=== PATIENT | female | born 1940 | race Caucasian/White ===

== ENCOUNTER → 2017-12-02 16:24 | Outpatient (CLI) | payer MEDICARE, SELFPAY ==
--- NOTE | 2017-12-02 16:28 | DI.RAD.S_ITS ---
PROCEDURE: XR SHOULDER LT MIN 2V INDICATIONS: left shoulder pain TECHNIQUE: 3 views of the shoulder were acquired. COMPARISON: [facility], , CHEST 2 VIEW, 07/19/2017, 10:14. FINDINGS: Bones: No fractures or dislocations, but there is moderately severe degenerative change at the a.c. joint and the glenohumeral articulation. No suspicious bony lesions. Visualized ribs appear intact. 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 Dictated by: Dale Downs M.D. on 12/03/2017 at 8:31 Approved by: Dale Downs M.D. on 12/03/2017 at 8:33
== END ==
PROVIDERS: Family Provider Internal Medicine; PCP Internal Medicine; Visit Provider Internal Medicine
DX: M19.012 Primary osteoarthritis, left shoulder (principal); M25.512 Pain in left shoulder
CPT/HCPCS: 73030

== ENCOUNTER → 2018-01-28 14:15 | Outpatient (CLI) | payer MEDICARE, SELFPAY | PROVIDERS: Family Provider Internal Medicine; PCP Internal Medicine; Visit Provider Registered Nurse | DX: R39.9 Unspecified symptoms and signs involving the genitourinary system (principal) | CPT/HCPCS: 87077; 87086; 87186 ==

== ENCOUNTER → 2018-03-10 11:45 | Outpatient (CLI) | payer MEDICARE, SELFPAY ==
[2018-03-10 13:03] LABS: Appearance Urine UA SL CLOUDY; Bilirubin Urine UA NEGATIVE (NEGATIVE); Color Urine UA YELLOW; Glucose Urine UA NEGATIVE (Normal); Ketones Urine UA NEGATIVE (NEGATIVE); Leukocyte Esterase Urine UA 2+ (NEGATIVE); Nitrite Urine UA NEGATIVE (Negative); Occult Blood Urine UA TRACE-LYSED (Negative); Protein Urine UA NEGATIVE (Negative); Urobilinogen Urine UA 0.2 E.U./dL (0.2); pH Urine UA 6.5 (4.5-8.0)
[2018-03-10 13:15] LABS: Bacteria Urine Few (2-10); RBC Urine 0-1/HPF (0-5/HPF); Squamous Epithelial Cell Urine 0-1 /HPF; WBC Urine 30-100/HPF (0-5/HPF)
[2018-03-10 13:16] LABS: Culture Indicated Urine Specimen Cultured
== END ==
PROVIDERS: PCP Internal Medicine; Visit Provider Internal Medicine
DX: R39.89 Other symptoms and signs involving the genitourinary system (principal)
CPT/HCPCS: 81001; 87077; 87086; 87186

== ENCOUNTER → 2018-11-20 18:53 | Outpatient (ROUT) | payer MEDICARE, SELFPAY | PROVIDERS: Family Provider Internal Medicine; PCP Internal Medicine; Visit Provider Student in an Organized Health Care Education/Training Program | DX: N39.0 Urinary tract infection, site not specified (principal) | CPT/HCPCS: 87077; 87086; 87186 ==

== ENCOUNTER → 2019-07-08 12:43 | Outpatient (CLI) | payer MEDICARE, SELFPAY | PROVIDERS: Family Provider Internal Medicine; PCP Internal Medicine; Referring Provider Internal Medicine; Visit Provider Internal Medicine | DX: M81.0 Age-related osteoporosis without current pathological fracture (principal); Z78.0 Asymptomatic menopausal state; E07.9 Disorder of thyroid, unspecified; Z82.62 Family history of osteoporosis; Z87.891 Personal history of nicotine dependence | CPT/HCPCS: 77080; 77081 ==

== ENCOUNTER → 2021-01-02 10:20 | Outpatient (CLI) | payer MEDICARE, SELFPAY ==
--- NOTE | 2021-01-02 | DI.US.S_ITS ---
PROCEDURE: US ABDOMEN LIMITED INDICATIONS: LLQ LUMP TECHNIQUE: Real-time focused scanning was performed of the abdomen, with image documentation. COMPARISON: None. FINDINGS: Focused ultrasound examination of left lower quadrant abdominal wall shows 1.3 cm defect in left anterior abdominal wall containing fat only. There is herniated bowel loops through the defect during Valsalva which is resolved at rest. IMPRESSION: Left lower abdominal wall defect with herniation sac containing fat and bowel loops during Valsalva and is fully reducible. Dictated by: David Castellanos M.D. on 01/02/2021 at 11:55 Approved by: David Castellanos M.D. on 01/02/2021 at 11:56
== END ==
PROVIDERS: Family Provider Internal Medicine; PCP Internal Medicine; Referring Provider Internal Medicine; Visit Provider Internal Medicine
DX: R19.04 Left lower quadrant abdominal swelling, mass and lump (principal); K46.9 Unspecified abdominal hernia without obstruction or gangrene
CPT/HCPCS: 76705

== ENCOUNTER → 2022-07-13 15:54 | Outpatient (CLI) | payer MEDICARE, SELFPAY ==
--- NOTE | 2022-07-13 15:57 | DI.RAD.S_ITS ---
PROCEDURE: XR HIP W PEL IF DONE LT 2V INDICATIONS: Left groin pain/Hx hip replacement TECHNIQUE: AP pelvis and two views of the left hip acquired. COMPARISON: [facility], , [id number] W PEL IF PERFORMED, 07/26/2015, 6:23. FINDINGS: Bones: Patient is status post left hip arthroplasty, with hardware components in expected positions. The hip joint appears congruent. The visualized bony structures appear intact. Moderate heterotopic calcification and along the lateral aspect of the acetabular cup. Soft tissues: Overlying postoperative changes are noted. No suspicious soft tissue densities. IMPRESSION: Left total hip arthroplasty, without hardware complication. Dictated by: Spencer Lees M.D. on 07/13/2022 at 16:24 Approved by: Spencer Lees M.D. on 07/13/2022 at 16:25
== END ==
PROVIDERS: Family Provider Internal Medicine; PCP Internal Medicine; Referring Provider Internal Medicine; Visit Provider Internal Medicine
DX: R10.32 Left lower quadrant pain (principal); Z96.642 Presence of left artificial hip joint
CPT/HCPCS: 73502

== ENCOUNTER → 2022-10-15 12:02 | Outpatient (CLI) | payer MEDICARE, SELFPAY ==
--- NOTE | 2022-10-15 12:03 | DI.RAD.S_ITS ---
PROCEDURE: XR LUMBAR SPINE MIN 4V INDICATIONS: BACK AND HIP PAIN TECHNIQUE: 5 views of the lumbar spine were acquired, including bilateral oblique views. COMPARISON: None. FINDINGS: Bones: 5 nonrib-bearing vertebrae are present. There is mild leftward scoliotic curvature. No vertebral body compression fractures. No suspicious bony lesions. Left hip arthroplasty is present. Mild to moderate right hip arthritic change. Multilevel degenerative disc and foraminal narrowing are present most severe at L2-3, L3-4, L4-5. Soft tissues: Overlying bowel gas pattern is normal. No suspicious soft tissue calcifications. Oblique images: No pars defects. IMPRESSION: Multilevel degenerative changes as above. Dictated by: Pepper Blood M.D. on 10/15/2022 at 14:26 Approved by: Pepper Blood M.D. on 10/15/2022 at 14:27
== END ==
PROVIDERS: Family Provider Internal Medicine; PCP Internal Medicine; Referring Provider Physical Medicine & Rehabilitation; Visit Provider Physical Medicine & Rehabilitation
DX: M51.36 Other intervertebral disc degeneration, lumbar region (principal); M48.061 Spinal stenosis, lumbar region without neurogenic claudication; M25.559 Pain in unspecified hip
CPT/HCPCS: 72110

== ENCOUNTER → 2022-11-01 13:06 | Outpatient (CLI) | payer MEDICARE, SELFPAY ==
--- NOTE | 2022-11-01 13:07 | DI.MRI.S_ITS ---
PROCEDURE: MR HIP LT WO CON INDICATIONS: Left hip flexor weaness and pain TECHNIQUE: Noncontrast coronal T1 spin echo and STIR through the bony pelvis. Coronal and axial STIR, sagittal T1 spin echo, and oblique axial STIR through the hip. COMPARISON: [facility], CR, XR HIP W PEL IF DONE LT 2V, 07/13/2022, 17:09. FINDINGS: Image quality: Images are mildly degraded by expected metallic artifact related to the hip prostheses despite utilization of metal artifact reduction sequences. Diagnostic information is obtained. Bones and joints: Postsurgical changes are seen from left hip arthroplasty that obscures adjacent structures. No large joint effusion or periarticular mass. No adjacent osseous edema. A chronic ununited greater trochanter fracture is noted the remains continuous with a portion of the gluteus medius tendon. Bone marrow of the pelvic ring and proximal femurs show normal signal throughout. No intraosseous lesions or fractures. No avascular necrosis of the right femoral head. Prominent degenerative disc disease and facet hypertrophy are seen in the included spine. Degenerative changes are seen at the pubic symphysis and sacroiliac joints. Degenerative changes and mild subchondral edema are noted in the contralateral right hip. Tendons and ligaments: Fluid signal is seen within the distal gluteus medius and minimus tendons, consistent with partial intrasubstance tearing. The bulk of the tendon fibers remain intact. The proximal iliotibial band appears intact. The iliopsoas tendon appears intact, without adjacent bursal fluid collections. Mild left and moderate right proximal hamstring tendinosis. The direct and indirect heads of the rectus femoris muscle origin appear intact. Soft tissues: Visualized muscles demonstrate normal bulk and internal signal. Quadratus femoris muscle demonstrates no internal edema to suggest ischiofemoral impingement. The proximal sciatic neurovascular bundle appears intact. Extensive colonic diverticulosis is noted. IMPRESSION: 1. Postsurgical changes from left total hip arthroplasty with associated metal artifact that obscures adjacent structures. No acute hardware complication is seen. 2. 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 The mildly displaced fracture fragment is continuous with a portion of the distal gluteus medius tendon. 3. Partial tearing of the left distal gluteus medius and minimus tendons just proximal to their insertions onto the greater trochanter. 4. Bilateral proximal hamstring tendinosis. 5. Multilevel degenerative changes and the low convex curvature within the included lumbar spine. 6. Degenerative changes are partially imaged in the right hip with subchondral cystic changes and subchondral edema. 7. Colonic diverticulosis. Approved by: Henry Miguel M.D. on 11/02/2022 at 9:32
== END ==
PROVIDERS: Family Provider Internal Medicine; PCP Internal Medicine; Referring Provider Physical Medicine & Rehabilitation; Visit Provider Physical Medicine & Rehabilitation
DX: M76.899 Other specified enthesopathies of unspecified lower limb, excluding foot (principal); M96.89 Other intraoperative and postprocedural complications and disorders of the musculoskeletal system; M61.40 Other calcification of muscle, unspecified site; S72.112 Displaced fracture of greater trochanter of left femur; S76.012A Strain of muscle, fascia and tendon of left hip, initial encounter; K57.90 Diverticulosis of intestine, part unspecified, without perforation or abscess without bleeding; M47.816 Spondylosis without myelopathy or radiculopathy, lumbar region; Z96.642 Presence of left artificial hip joint
CPT/HCPCS: 73721

== ENCOUNTER → 2022-11-28 10:41 | Outpatient (CLI) | payer MEDICARE, SELFPAY ==
--- NOTE | 2022-11-28 10:42 | DI.MRI.S_ITS ---
PROCEDURE: MR LUMBAR SPINE WO CON INDICATIONS: left hip flexor weakness TECHNIQUE: Noncontrast sagittal T1 spin echo and T2 fast echo, sagittal STIR, and T2 fast spin echo through the lumbar spine. In cases with scoliosis, additional coronal T2 fast spin echo may be performed. COMPARISON: None. FINDINGS: Image quality: Excellent. Alignment and Curvature: Mild levocurvature of the lumbar spine. Grade 1 retrolisthesis of T12 on L1, L1-L2 and L2 on L3. Grade 1 anterolisthesis of L4 on L5 and L5 on S1. Bone Marrow: Multilevel degenerative endplate changes, worse L4-L5.. No acute vertebral body compression fractures. Spinal Cord: Conus medullaris terminates at the L1 level. Visualized cord demonstrates normal signal and size. Paraspinous Soft Tissues: No paravertebral masses. Bilateral renal cysts. Hepatic cysts. T12-L1: Disc desiccation height loss. Small posterior disc bulge. Facet arthropathy and thickened ligamentum flavum. No central canal stenosis. No neural foraminal stenosis. L1-L2: Disc desiccation, height loss and a small posterior disc bulge. Facet arthropathy and thickening of the ligamentum flavum. No central canal stenosis. Moderate right and mild left neural foraminal stenosis. L2-L3: Disc desiccation, height loss and a posterior disc bulge. Facet arthropathy and thickening ligamentum flavum. Narrowing of the lateral recesses. No significant central canal stenosis. Moderate right and mild left neural foraminal stenosis. L3-L4: Disc desiccation, height loss and diffuse posterior disc bulge. Facet arthropathy, thickening of ligamentum flavum and epidural lipomatosis. This results in severe spinal canal stenosis. There is moderate to severe right and moderate left neural foraminal stenosis. L4-L5: Disc desiccation, height loss and a posterior disc bulge. Facet arthropathy and thickening of ligamentum flavum. Epidural lipomatosis. This results in moderate central canal stenosis. Narrowing of the lateral recesses with abutment of the descending L5 nerve roots. Moderate right and mild left neural foraminal stenosis. L5-S1: Disc desiccation and small posterior disc bulge. Facet arthropathy. No central canal stenosis. No neural foraminal stenosis. IMPRESSION: 1. Multilevel degenerative changes of the lumbar spine. This is worse L3-L4 with severe spinal canal stenosis. There is moderate central canal stenosis at L4-5 with narrowing of the lateral recesses and abutment of the descending L5 nerve roots. 2. Multilevel neural foraminal narrowing. At moderate right neural foramina L1-L2 , L2-L3 and L4-L5. Moderate to severe right neural foraminal narrowing at L3-L4. Additional levels of mild neural foraminal stenosis as described above. Dictated by: Sherwin Monge M.D. on 11/28/2022 at 12:44 Approved by: Sherwin Monge M.D. on 11/28/2022 at 12:51
== END ==
PROVIDERS: Family Provider Internal Medicine; PCP Internal Medicine; Referring Provider Physical Medicine & Rehabilitation; Visit Provider Physical Medicine & Rehabilitation
DX: M48.061 Spinal stenosis, lumbar region without neurogenic claudication (principal); M47.26 Other spondylosis with radiculopathy, lumbar region; Z96.642 Presence of left artificial hip joint; M47.27 Other spondylosis with radiculopathy, lumbosacral region
CPT/HCPCS: 72148

== ENCOUNTER 2023-02-27 12:38 | Day surgery (SDC) | payer MEDICARE, SELFPAY ==
[2023-02-21 15:00] VITALS: BMI 25.9
[2023-02-27] VITALS (8 sets, daily range): BP systolic 133–157; BP diastolic 57–80; PULSE 56–89; RESP 12–18; TEMP 36.5–37.2; O2SAT 95–98; BMI 25.6
[2023-02-27] MEDS: LACTATED RINGERS 1,000 ML 100 ML IV ×2 (13:22→15:30)
--- NOTE | 2023-02-27 14:15 | PM.PREOP ---
Pre-operative Note Interval Note History & Physical reviewed/Exam performed by Physician: Yes Changes to H&P: No
--- NOTE | 2023-02-27 14:19 | SUR.OPER ---
Supine on padded OR bed, head on pillow, safety belt at thigh, bilateral arms padded and tucked at side<90 degrees abduction. Legs uncrossed. Tape over blanket to secure lower legs.
[2023-02-27] MEDS: CEFAZOLIN 2 GM/100 ML PREMIX 100 ML IV (14:39)
[2023-02-27] MEDS: BUPIVACAINE 0.25% (PF) VIAL 30 ML INJ (14:56)
--- NOTE | 2023-02-27 15:51 | P.OP_ITS ---
Operative Date/Time/Diagnoses Date of procedure: 02/27/23 Time of procedure: 15:52 Pre-op diagnosis: Left inguinal hernia Post-op diagnosis: same Procedure & Clinicians Procedure: Laparoscopic repair of left inguinal hernia Same procedure as scheduled: Yes Indications: 82-year-old woman with a symptomatic left inguinal hernia here for a lapa roscopic repair Surgeon: Sunny Almonte Anesthesia Type: General Operative Notes Findings: Left femoral hernia. Left direct hernia Specimen(s): none sent Estimated Blood Loss (mL): 20 Procedure in detail: The patient was brought to the operating room and placed supine on the table. Bilateral sequential compression devices were applied. General anesthesia was induced and they were intubated with an endotracheal tube. A vasquez cath was placed in sterile fashion. They received Ancef prior to skin incision. They were prepped and draped in sterile fashion. A time out was performed to ensure the correct patient, procedure and necessary equipment within the operating room. The skin was infiltrated with 0.25% bupivicaine. A 1 cm supra umbilical midline incision was made. The fascia was sharply incised and the abdomen entered traumatically. A 10mm balloon port was placed and pneumoperitoneum was established at 15mm Hg. Inspection of the abdomen demonstrated no evidence of injury upon entry. Two 5 mm ports were then placed under direct visualization in the right and left lower quadrant lateral to the rectus muscle. No evidence of a right inguinal hernia. There was a left inguinal hernia. The peritoneum 4 cm superior to the deep inguinal ring between the medial umbilical ligament and the anterior superior iliac spine was incised. The medial preperitoneal dissection was carried out into the space of Retzius bluntly, the bladder was swept inferiorly, the pubis and Bernardo's ligament were identified. Next attention was turned towards the lateral aspect of the peritoneal flap. There was a fat containing femoral hernia which was reduced. There was portion of small bowel within a direct defect which was also reduced. The attachments to the direct hernia sac were divided. A large Bard 3D Max mesh was then placed into the abdomen and positioned such that the myopectineal orifice was completely covered with good overlap on all sides. The peritoneal flap was then repositioned back to its original position and a running V lock suture was used to close the peritoneum such that no bowel could herniate into the preperitoneal space. The area was examined for hemostasis. The 5mm trocars were removed under direct visualization and pneumoperitoneum was deflated through the umbilical trocar, The fascia at the umbilicus was closed with 0-Vicryl in figure of 8 fashion, skin closed with 4-0 Monocyl followed by Dermabond. The sponge and instrument count at the end of the case was correct. The patient emerged from anesthsia was extubated and transferred to recovery in stable condition. Complications: none Post-operative Condition: stable Disposition: same day surgery
[2023-02-27] MEDS: fentaNYL 100 MCG/2 ML INJ IV (15:53)
[2023-02-27] MEDS: OXYCODONE IR 5 MG TABLET PO ×2 (15:54→16:25)
== END 2023-02-27 16:51 | disposition home or self-care (01) ==
PROVIDERS: Family Provider Internal Medicine; PCP Internal Medicine; Referring Provider Surgery; Visit Provider Surgery
PROC: 0YQ64ZZ Repair Left Inguinal Region, Percutaneous Endoscopic Approach (ICD-10-PCS; CPT 49650; principal; 2023-02-27 15:45)
DX: K40.90 Unilateral inguinal hernia, without obstruction or gangrene, not specified as recurrent (principal); I10 Essential (primary) hypertension
CPT/HCPCS: 49650; J0690; J2704; J3010

== ENCOUNTER → 2023-08-01 10:08 | Outpatient (CLI) | payer MEDICARE, SELFPAY | PROVIDERS: Family Provider Family Medicine; PCP Family Medicine; Referring Provider Physical Medicine & Rehabilitation; Visit Provider Physical Medicine & Rehabilitation | DX: M48.061 Spinal stenosis, lumbar region without neurogenic claudication (principal); M54.16 Radiculopathy, lumbar region; M76.899 Other specified enthesopathies of unspecified lower limb, excluding foot; M61.40 Other calcification of muscle, unspecified site; M96.89 Other intraoperative and postprocedural complications and disorders of the musculoskeletal system | CPT/HCPCS: 95886; 95910 ==

== ENCOUNTER → 2023-09-06 09:05 | Outpatient (CLI) | payer MEDICARE, SELFPAY ==
--- NOTE | 2023-09-06 09:06 | DI.RAD.S_ITS ---
PROCEDURE: XR KNEE LT 3V INDICATIONS: left knee djd TECHNIQUE: 3 views of the knee were acquired. COMPARISON: None. FINDINGS: Bones: No fractures or dislocations. No suspicious bony lesions. [id number] tricompartmental knee joint degeneration. There is benign appearing periosteal reaction in tibia. Osteopenia. Soft tissues: Small joint effusion. No suspicious soft tissue calcifications. IMPRESSION: 1. Btsi-pr-xnsaxrhb degenerative joint disease. If clinical symptoms persist or there is clinical suspicion for internal derangement, consider MRI further evaluation. 2. Benign appearing periosteal reaction in proximal tibia. 3. Osteopenia. Dictated by: Elodia Ratliff M.D. on 09/06/2023 at 10:22 Approved by: Elodia Ratliff M.D. on 09/06/2023 at 10:45
== END ==
PROVIDERS: Family Provider Family Medicine; PCP Family Medicine; Referring Provider Physical Medicine & Rehabilitation; Visit Provider Physical Medicine & Rehabilitation
DX: M17.12 Unilateral primary osteoarthritis, left knee (principal); M85.862 Other specified disorders of bone density and structure, left lower leg
CPT/HCPCS: 73562

== ENCOUNTER → 2024-01-14 07:52 | Outpatient (CLI) | payer MEDICARE, SELFPAY ==
[2024-01-14 10:25] LABS: Add Manual Diff / Slide Review NO; Basophils Absolute Auto 100 /uL (0-100); Basophils Percent Auto 1.3 % (0-2); Eosinophils Absolute Auto 100 /uL (0-450); Hematocrit 38.9 % (36-46); Hemoglobin 13.3 g/dL (12.0-16.0); Lymphocytes Absolute Auto 1200 /uL (1100-4500); Lymphocytes Percent Auto 24.4 % (25-40); Mean Corpuscular HGB Conc 34.2 % (30-36); Mean Corpuscular Hemoglobin 33.2 PG (26-34); Mean Corpuscular Volume 97.2 fL (80-100); Monocytes Absolute Auto 600 /uL (0-900); Monocytes Percent Auto 12.3 % (3-14); Neutrophils Absolute Auto 2800 /uL (1500-7000); Platelet Count 241 X10^3/uL (150-400); Red Blood Cell Count 4.01 X10^6/uL (4.0-5.2); Red Cell Distribution Width 14.1 % (11.6-14.8); White Blood Cell Count 4.8 X10^3/uL (4.5-11.0)
[2024-01-14 10:58] LABS: Alanine Aminotransferase 20 IU/L (<35); Albumin 3.8 g/dL (3.5-5.0); Albumin Globulin Ratio 1.1 (1.0-2.8); Alkaline Phosphatase 79 U/L (38-126); Aspartate Aminotransferase 30 IU/L (14-36); Bilirubin Total 0.6 mg/dL (0.2-1.3); Chloride 104 mmol/L (98-107); Cholesterol 198 mg/dL (140-199); Globulin 3.5 g/dL (1.7-4.1); Glucose 89 mg/dL (80-110); HDL Cholesterol 95 mg/dL (40-60); HEMOLYSIS < 15 (0-50); Total Protein 7.3 g/dL (6.3-8.2)
[2024-01-14 11:19] LABS: Thyroid Stimulating Hormone 1.83 uIU/mL (0.47-4.68)
[2024-01-14 11:44] LABS: BUN Creatinine Ratio 32.1 (6-22); Blood Urea Nitrogen 18 mg/dL (7-17); Carbon Dioxide 25 mmol/L (22-32); Estimated Glomerular Filt Rate > 60 mL/min (>60); Sodium 137 mmol/L (137-145)
[2024-01-14 11:58] LABS: LDL Cholesterol Calculated 83 mg/dL (<100); Triglycerides 98 mg/dL (35-150)
== END ==
PROVIDERS: Family Provider Family Medicine; PCP Family Medicine; Referring Provider Family Medicine; Visit Provider Family Medicine
DX: I10 Essential (primary) hypertension (principal); M81.0 Age-related osteoporosis without current pathological fracture; E78.5 Hyperlipidemia, unspecified; Z86.2 Personal history of diseases of the blood and blood-forming organs and certain disorders involving the immune mechanism; R53.83 Other fatigue; E03.9 Hypothyroidism, unspecified
CPT/HCPCS: 36415; 80053; 80061; 84443; 85025

== ENCOUNTER 2024-07-12 09:33 | Emergency (ER) | payer MEDICARE, SELFPAY ==
[2024-07-12] VITALS (17 sets, daily range): BP systolic 101–135; BP diastolic 59–105; PULSE 76–132; RESP 16–21; TEMP 36.6; O2SAT 94–97; BMI 27.4
--- NOTE | 2024-07-12 09:38 | EKG_ITS ---
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
--- NOTE | 2024-07-12 09:45 | DI.RAD.S_ITS ---
PROCEDURE: XR CHEST 1V INDICATIONS: chest pain TECHNIQUE: One view of the chest was acquired. COMPARISON: None. FINDINGS: Surgical changes and devices: None. Lungs and pleura: Lungs are clear. No pleural effusions or pneumothorax. Calcified pleural plaques are seen throughout the lungs. Mediastinum: Mediastinal contours appear normal. Heart size is normal. Bones and chest wall: No suspicious bony lesions. Overlying soft tissues appear unremarkable. IMPRESSION: No acute cardiopulmonary abnormality is seen. Dictated by: Agata Zuluaga M.D. on 07/12/2024 at 9:14 Approved by: Agata Zuluaga M.D. on 07/12/2024 at 9:16
[2024-07-12 10:16] LABS: Prothrombin Time 10.8 SECONDS (9.4-12.5)
[2024-07-12 10:19] LABS: PTT Partial Thromboplastin Tim 34 SECONDS (25.1-36.5)
[2024-07-12 10:28] LABS: Alanine Aminotransferase 27 IU/L (<35); Albumin 4.5 g/dL (3.5-5.0); Albumin Globulin Ratio 1.1 (1.0-2.8); Alkaline Phosphatase 76 U/L (38-126); Aspartate Aminotransferase 37 IU/L (14-36); BUN Creatinine Ratio 18.8 (6-22); Bilirubin Total 0.7 mg/dL (0.2-1.3); Blood Urea Nitrogen 12 mg/dL (7-17); Calcium 9.4 mg/dL (8.4-10.2); Carbon Dioxide 26 mmol/L (22-32); Chloride 100 mmol/L (98-107); Creatine Kinase 31 U/L (30-135); Estimated Glomerular Filt Rate > 60 mL/min (>60); Globulin 4.1 g/dL (1.7-4.1); Glucose 120 mg/dL (80-110); HEMOLYSIS < 15 (0-50); Lipase 64 U/L (23-300); Magnesium 2.1 mg/dL (1.6-2.3); Potassium 3.8 mmol/L (3.4-5.1); Sodium 136 mmol/L (137-145); Total Protein 8.6 g/dL (6.3-8.2)
[2024-07-12 10:32] LABS: Add Manual Diff / Slide Review NO; Basophils Absolute Auto 100 /uL (0-100); Basophils Percent Auto 0.8 % (0-2); Eosinophils Absolute Auto 100 /uL (0-450); Eosinophils Percent Auto 1.8 % (2-4); Hematocrit 42.5 % (36-46); Hemoglobin 14.3 g/dL (12.0-16.0); Lymphocytes Absolute Auto 1600 /uL (1100-4500); Lymphocytes Percent Auto 22.6 % (25-40); Mean Corpuscular HGB Conc 33.6 % (30-36); Mean Corpuscular Hemoglobin 31.9 PG (26-34); Mean Corpuscular Volume 94.9 fL (80-100); Monocytes Absolute Auto 900 /uL (0-900); Monocytes Percent Auto 12.2 % (3-14); Neutrophils Absolute Auto 4500 /uL (1500-7000); Neutrophils Percent Auto 62.6 % (50-75); Platelet Count 262 X10^3/uL (150-400); Red Blood Cell Count 4.48 X10^6/uL (4.0-5.2); Red Cell Distribution Width 13.7 % (11.6-14.8); White Blood Cell Count 7.1 X10^3/uL (4.5-11.0)
[2024-07-12] MEDS: dilTIAZem 25 MG/5 ML SDV 10 MG IV (10:36)
[2024-07-12] MEDS: ASPIRIN 81 MG CHEW TAB 324 MG PO (10:36)
[2024-07-12 10:39] LABS: NT-proBNP (BNP-Adult 18+) 1280 pg/mL (<450); Troponin I < 0.012 ng/mL (0.01-0.034)
--- NOTE | 2024-07-12 13:19 | ED.ARRPALP ---
HPI - Arrhythmia/Palpitations General Chief Complaint: Arrhythmia/Palpitations Stated Complaint: fast heart beat Time Seen by Provider: 07/12/24 10:59 Source: patient Mode of arrival: Family Vehicle History of Present Illness HPI narrative: Patient is a 83-year-old female history of hyperlipidemia hypothyroid hypertension presenting today with heart palpitations. She reports that has been going on for an unknown amount of time maybe a week. She sometimes feels dizzy and lightheaded. Not necessarily short of breath no real chest pain. She was found to be AFib with RVR she has no history of atrial fibrillation. Not on anticoagulation. Related Data Home Medications Medication Instructions Recorded Confirmed calcium carbonate-vitamin D2 2 tab PO DAILY 07/09/24 07/09/24 [Calcium with Vitamin D] magnesium oxide 500 mg capsule 500 mg PO DAILY PRN 07/09/24 07/09/24 pravastatin 20 mg tablet 20 mg PO BEDTIME 07/09/24 07/09/24 Previous Rx's Medication Instructions Recorded acetaminophen 325 mg capsule 650 mg (2 x 325 mg) PO QID PRN 02/27/23 (Tylenol) pain #60 caps oxybutynin chloride 5 mg tablet 5 mg PO BEDTIME PRN bladder spasms 01/13/24 #30 tabs levothyroxine 75 mcg tablet 75 mcg PO QAM #90 tabs 01/28/24 (Synthroid) nifedipine 90 mg tablet,extended 90 mg PO DAILY #90 tabs 06/10/24 release 24 hr apixaban 5 mg tablet (Eliquis) 5 mg PO BID #30 tabs 07/12/24 apixaban 5 mg tablet (Eliquis) 5 mg PO BID #60 tabs 07/12/24 metoprolol succinate 25 mg 12.5 mg (1/2 x 25 mg) PO BID #20 07/12/24 tablet,extended release 24 hr tabs metoprolol succinate 25 mg 12.5 mg (1/2 x 25 mg) PO BID #30 07/12/24 tablet,extended release 24 hr tabs Allergies Allergy/AdvReac Type Severity Reaction Status Date / Time JORGE Inhibitors Allergy Mild COUGH Verified 07/12/24 10:27 [JORGE INHIBITORS] Patient History Medical History Postoperative visit Trapezius muscle spasm 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) Palpitations Osteoarthritis Osteoporosis Measles Left knee DJD Spinal stenosis of lumbar region with radiculopathy Hip flexor tendonitis Muscular heterotopic calcification, postoperative Osteopenia Colon polyps Anxiety (~2012) Mumps (~194) Chicken pox (~194) History of urinary incontinence (~2009) Hypothyroidism Hypertension (~2000) Hyperlipidemia Surgical History History of hernia repair (~02/27/23) History of total left hip arthroplasty Anesthesia Trigger thumb (~2013) History of hip replacement (~2015) History of cataract removal with insertion of prosthetic lens (~05/2016) Status post hernia repair (~02/2016) Status post bunionectomy (~2011) Status post bunionectomy (~2010) Family History Brother Age: 85 Atrial fibrillation Hypertension Heart disease Father Congestive heart failure Hypertension Mother Stroke Hypertension Family/Other No problems noted. Family/Other No problems noted. Social History marital status: unmarried,single household members: none lives independently: Yes occupational status: previously employed Smoking Status: Former smoker Smoking Status: Former smoker tobacco type: cigarettes alcohol intake frequency: a few times a month Exam Initial Vital Signs Initial Vital Signs: Vital Signs Temperature 97.8 F 07/12/24 09:55 Pulse Rate 132 H 07/12/24 09:55 Respiratory Rate 19 07/12/24 09:55 Blood Pressure 120/75 07/12/24 09:55 Pulse Oximetry 97 07/12/24 09:55 Oxygen Delivery Method Room Air 07/12/24 09:55 GENERAL: Alert pleasant well-appearing 83-year-old female and in no acute distress. HEENT: Head atraumatic,EOMI, pupils reactive, face symmetric, moist mucous membranes CARDIOVASCULAR: Regular rate and rhythm without murmurs, rubs or gallops. RESPIRATORY: Breath sounds equal bilaterally, no wheezes rales or rhonchi. ABDOMEN: Soft, nontender. Normoactive bowel sounds all 4 quadrants. No guarding or rebound. EXTREMITIES: Normal range of motion, no clubbing or edema. Neurovascularly intact NEUROLOGICAL: Alert and oriented x4.Normal gait and speech. Cranial nerves II through XII grossly intact. SKIN: Warm, dry, no laceration, no petechiae, no rashes or lesions. Course Orders Ordered: ED Orders 07/12/24 09:38 EKG-12 Lead Stat 07/12/24 09:45 XR chest 1V Stat 07/12/24 09:53 Complete Blood Count AUTO DIFF Stat Comprehensive Metabolic Panel Stat Lipase Stat Magnesium Stat NT-proBNP (BNP-Adult 18+) Stat PTT Partial Thromboplastin Marquis Stat Prothrombin Time INR Stat Troponin & CK Cardiac Panel Stat 07/12/24 09:58 MAG [Magnesium] Stat TSH [Thyroid Stimulating Hormone] Stat 07/12/24 14:12 EKG-12 Lead Stat Discontinued Medications Apixaban (Apixaban 5 Mg Tablet) 5 mg PO NOW ONE Stop: 07/12/24 13:30 Last Admin: 07/12/24 13:45 Dose: 5 mg Documented By: ANISA Aspirin (Aspirin 81 Mg Chew Tab) 324 mg PO NOW ONE Stop: 07/12/24 09:46 Last Admin: 07/12/24 10:36 Dose: 324 mg Documented By: ANISA Diltiazem HCl (Diltiazem 25 Mg/5 Ml Sdv) 10 mg IV NOW ONE Stop: 07/12/24 10:05 Last Admin: 07/12/24 10:36 Dose: 10 mg Documented By: ANISA Metoprolol Succinate (Metoprolol Er 25 Mg Tablet) 25 mg PO NOW ONE Stop: 07/12/24 13:30 Last Admin: 07/12/24 13:45 Dose: 25 mg Documented By: ANISA Metoprolol Tartrate (Metoprolol Tartrate 5 Mg/5 Ml Inj) 5 mg IV NOW ONE Stop: 07/12/24 13:30 Last Admin: 07/12/24 13:47 Dose: 5 mg Documented By: ANISA Vital Signs Vital signs: Vital Signs - 8 hr 07/12/24 09:55 07/12/24 09:55 07/12/24 09:56 Temperature 97.8 F Pulse Rate 132 H 119 H 128 H Respiratory Rate 19 Blood Pressure 120/75 Pulse Oximetry 97 97 97 Oxygen Delivery Method Room Air Room Air 07/12/24 09:56 07/12/24 10:00 07/12/24 10:00 Temperature Pulse Rate 131 H Respiratory Rate 20 Blood Pressure 125/79 120/75 Pulse Oximetry 97 Oxygen Delivery Method 07/12/24 10:30 07/12/24 10:30 07/12/24 10:36 Temperature Pulse Rate 117 H 125 H Respiratory Rate 18 Blood Pressure 115/73 115/73 Pulse Oximetry 95 Oxygen Delivery Method 07/12/24 10:39 07/12/24 10:39 07/12/24 11:00 Temperature Pulse Rate 99 H Respiratory Rate 20 Blood Pressure 103/59 L 128/70 Pulse Oximetry 96 Oxygen Delivery Method 07/12/24 11:00 07/12/24 11:15 07/12/24 11:15 Temperature Pulse Rate 93 H 110 H Respiratory Rate 20 20 Blood Pressure 135/105 H Pulse Oximetry 95 96 Oxygen Delivery Method Room Air 07/12/24 11:30 07/12/24 11:30 07/12/24 12:00 Temperature Pulse Rate 102 H Respiratory Rate 18 Blood Pressure 125/76 119/83 Pulse Oximetry 97 Oxygen Delivery Method 07/12/24 12:00 07/12/24 12:30 07/12/24 12:30 Temperature Pulse Rate 92 H 99 H Respiratory Rate 20 Blood Pressure 117/68 Pulse Oximetry 97 96 Oxygen Delivery Method Room Air 07/12/24 13:00 07/12/24 13:00 07/12/24 13:43 Temperature Pulse Rate 102 H 121 H Respiratory Rate 16 Blood Pressure 101/65 Pulse Oximetry 97 94 Oxygen Delivery Method Room Air 07/12/24 13:44 07/12/24 13:44 07/12/24 13:45 Temperature Pulse Rate 115 H 104 H Respiratory Rate 21 Blood Pressure 133/80 133/80 Pulse Oximetry 97 Oxygen Delivery Method 07/12/24 14:00 07/12/24 14:00 07/12/24 14:30 Temperature Pulse Rate 78 76 Respiratory Rate 18 18 Blood Pressure 120/63 Pulse Oximetry 97 94 Oxygen Delivery Method Room Air 07/12/24 14:30 Temperature Pulse Rate Respiratory Rate Blood Pressure 121/71 Pulse Oximetry Oxygen Delivery Method MDM - Arrhythmia/Palpitations Lab Data 07/12/24 09:53 07/12/24 09:53 Labs: Lab Results 07/12/24 07/12/24 Range/Units 09:53 09:58 WBC 7.1 (4.5-11.0) X10^3/uL RBC 4.48 (4.0-5.2) X10^6/uL Hgb 14.3 (12.0-16.0) g/dL Hct 42.5 (36-46) % MCV 94.9 (80-100) fL MCH 31.9 (26-34) PG MCHC 33.6 (30-36) % RDW 13.7 (11.6-14.8) % Plt Count 262 (150-400) X10^3/uL Neut % (Auto) 62.6 (50-75) % Lymph % (Auto) 22.6 L (25-40) % [place] % (Auto) 12.2 (3-14) % Eos % (Auto) 1.8 L (2-4) % Baso % (Auto) 0.8 (0-2) % Neut # (Auto) 4500 (6602-4546) /uL Lymph # (Auto) 1600 (6920-1061) /uL [place] # (Auto) 900 (0-900) /uL Eos # (Auto) 100 (0-450) /uL Baso # (Auto) 100 (0-100) /uL PT 10.8 (9.4-12.5) SECONDS INR 1.0 (0.9-1.3) APTT 34 (25.1-36.5) SECONDS Sodium 136 L (137-145) mmol/L Potassium 3.8 (3.4-5.1) mmol/L Chloride 100 (98-107) mmol/L Carbon Dioxide 26 (22-32) mmol/L BUN 12 (7-17) mg/dL Creatinine 0.64 (0.52-1.04) mg/dL Estimated GFR > 60 (>60) mL/min BUN/Creatinine Ratio 18.8 (6-22) Glucose 120 H (80-110) mg/dL Calcium 9.4 (8.4-10.2) mg/dL Magnesium 2.1 2.1 (1.6-2.3) mg/dL Total Bilirubin 0.7 (0.2-1.3) mg/dL AST 37 H (14-36) IU/L ALT 27 (<35) IU/L Alkaline Phosphatase 76 (38-126) U/L Total Creatine Kinase 31 (30-135) U/L Troponin I < 0.012 (0.01-0.034) ng/mL NT-Pro-B Natriuret Pep 1280 H (<450) pg/mL Total Protein 8.6 H (6.3-8.2) g/dL Albumin 4.5 (3.5-5.0) g/dL Globulin 4.1 (1.7-4.1) g/dL Albumin/Globulin Ratio 1.1 (1.0-2.8) Lipase 64 (23-300) U/L TSH 1.86 (0.47-4.68) uIU/mL Imaging Data Chest x-ray: Radiologist's Impresson: PROCEDURE: XR CHEST 1V INDICATIONS: chest pain TECHNIQUE: One view of the chest was acquired. COMPARISON: None. FINDINGS: Surgical changes and devices: None. Lungs and pleura: Lungs are clear. No pleural effusions or pneumothorax. Calcified pleural plaques are seen throughout the lungs. Mediastinum: Mediastinal contours appear normal. Heart size is normal. Bones and chest wall: No suspicious bony lesions. Overlying soft tissues appear unremarkable. IMPRESSION: No acute cardiopulmonary abnormality is seen. Dictated by: Agata Zuluaga M.D. on 07/12/2024 at 9:14 ECG Data Attestation: I personally reviewed and interpreted this ECG as follows: Prior ECG tracings: available for review Interpretation: Atrial fibrillation rate [address] changes previous EKGs shows sinus rhythm in 2018 EKGs 2. Atrial fibrillation rate 79 MDM Narrative Medical decision making narrative: MDM CC: Palpitations Complicating co-morbidities: Hypothyroid Medical records reviewed: Previous PCP visit no mention of atrial fibrillation Differential considered: Anemia pneumonia atrial flutter WPW SVT hyperthyroid Exam documented above, pertinent findings include: Alert very well-appearing 83-year-old female Lab Test results independently reviewed as above. Pertinent findings: Hemoglobin 14.3 hematocrit 42.5 TSH 1.86 Magnesium 2.1 A chemistry panel within normal limits Independently reviewed EKG as above atrial fibrillation with RVR Repeat EKGs shows atrial fibrillation rate 79 no acute ischemia Imaging studies independently reviewed: Chest x-ray no acute cardiopulmonary process Treatments: Diltiazem metoprolol Eliquis Re-evaluations: Patient did have some response to diltiazem however heart rate quickly came back. Much better response with metoprolol Discussion: Patient 83-year-old female presenting today with new onset atrial fibrillation. She was not a candidate for cardioversion symptoms have been ongoing for an unknown amount of time. She better responded to metoprolol. She has a CHADS-VASc score of 4. She has no contraindication to anticoagulation. She was given a dose Eliquis along with p.o. metoprolol. Heart rate is much better controlled at this time. Discharge Plan Departure Patient Disposition: Home Clinical Impression: New onset atrial fibrillation Instructions: DI for Atrial Fibrillation Activity Restrictions/Additional Instructions: *You have been diagnosed with atrial fibrillation *What to do: At this time you have new onset atrial fibrillation. You are at risk for stroke. We are putting him on medication called Eliquis. It is a blood thinner. You may notice more easily bruising. If you should have head injury or bloody stool please return to emergency department immediately. You will also need to follow up with your primary care provider. You will need an outside echocardiogram of your heart and likely referral to Cardiology. *Continue to take medications as directed Metoprolol 12.5 mg twice a day Eliquis 5 mg twice a day *Follow up with your primary care provider in 2-3 days or call [phone] *Return to ER if you should have increasing chest pain palpitations shortness of breath [or] any new, worsening or concerning symptoms Prescriptions: New metoprolol succinate 25 mg tablet extended release 24 hr 12.5 mg PO BID Qty: 30 0RF Eliquis 5 mg tablet 5 mg PO BID Qty: 60 0RF metoprolol succinate 25 mg tablet extended release 24 hr 12.5 mg PO BID Qty: 20 0RF Eliquis 5 mg tablet 5 mg PO BID Qty: 30 0RF No Action levothyroxine [Synthroid] 75 mcg tablet 75 mcg PO QAM Qty: 90 1RF nifedipine 90 mg tablet extended release 24hr 90 mg PO DAILY Qty: 90 2RF magnesium oxide 500 mg capsule 500 mg PO DAILY PRN oxybutynin chloride 5 mg tablet 5 mg PO BEDTIME PRN (Reason: bladder spasms) Qty: 30 0RF calcium carbonate-vitamin D2 [Calcium with Vitamin D] 2 tab PO DAILY pravastatin 20 mg tablet 20 mg PO BEDTIME acetaminophen [Tylenol] 325 mg capsule 650 mg PO QID PRN (Reason: pain) Qty: 60 0RF Referrals: Stephanie Lutz DO [Primary Care Provider] - Stand Alone Forms: Patient Portal/API/Survey
[2024-07-12] MEDS: METOPROLOL ER 25 MG TABLET PO (13:45)
[2024-07-12] MEDS: APIXABAN 5 MG TABLET PO (13:45)
[2024-07-12] MEDS: METOPROLOL TARTRATE 5 MG/5 ML INJ IV (13:47)
[2024-07-12 13:49] LABS: Magnesium 2.1 mg/dL (1.6-2.3)
[2024-07-12 14:21] LABS: Thyroid Stimulating Hormone 1.86 uIU/mL (0.47-4.68)
--- NOTE | 2024-07-12 14:21 | EKG_ITS ---
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
== END 2024-07-12 15:02 | disposition home or self-care (01) ==
PROVIDERS: Emergency Provider Emergency Medicine; Family Provider Family Medicine; PCP Family Medicine
DX: I48.91 Unspecified atrial fibrillation (principal); R07.9 Chest pain, unspecified; E78.5 Hyperlipidemia, unspecified; E03.9 Hypothyroidism, unspecified; I10 Essential (primary) hypertension; R42 Dizziness and giddiness
CPT/HCPCS: 36415; 71045; 80053; 82550; 83690; 83735; 83880; 84443; 84484; 85025; 85610; 85730; 93005; 96374; 96375; 99284

== ENCOUNTER → 2024-08-06 06:51 | Outpatient (CLI) | payer MEDICARE, SELFPAY ==
--- NOTE | 2024-08-06 06:52 | DI.ECHO.S_ITS ---
[facility]---------+ [facility] : : [address] : [place] : : [id number] : : Phone: [phone] Echocardiogram Report + + :Name: MOISÉS WOOD Study Date: 08/06/2024 Height: 62 in : :[facility] ReadingLocation: Weight: 150 lb : : Gender: Female BSA: 1.7 m2 : :: 1940 Age: 83 yrs BP: 124/69 mmHg: :Reason For Study: ATRIAL FIBRILLATINO : :Ordering Physician: STACI, : :BRIGIDO Performed By: Ganga Qureshi : :Referring: BRIGIDO SMALL : + + Interpretation Summary Sinus bradycardia with HR 53-59 bpm. Normal LV size, wall thickness, wall motion and LV systolic function. EF is 60-65%. Severe LA enlargement; otherwise normal chamber sizes. No significant valvular abnormalities. Compared to prior echo 06/28/2017, LA volume index jose eduardo from 45 cm/m2 to 64 ml/m2. Procedure: A two-dimensional transthoracic echocardiogram with color flow and Doppler was performed. The study quality was technically good. Comparison is made with the echocardiogram of 06/28/2017. There is no prior echocardiogram noted for this patient. The patient was in normal sinus rhythm during the exam. Left Ventricle: The left ventricle is normal in size. Left ventricular wall thickness is mildly increased. There is normal left ventricular wall thickness. There is no ventricular septal defect visualized. The ejection fraction is estimated to be 60-65%. There are no focal wall motion abnormalities. Diastolic parameters suggest probable normal left ventricular diastolic function and normal filling pressures. Right Ventricle: The right ventricle is normal in size and function. Atria: The left atrium is severely dilated. The left atrial size is normal. The right atrium is moderately dilated. Right atrial size is normal. There is no Doppler evidence for an interatrial shunt. Mitral Valve: The mitral valve leaflets appear normal. There is no evidence of stenosis, fluttering, or prolapse. The mitral valve is normal in structure and function. There is mild to moderate mitral regurgitation. Aortic Valve: The aortic valve is trileaflet. The aortic valve opens well. The aortic valve is mildly calcified. The aortic valve is normal in structure and function. No aortic regurgitation is present. Tricuspid Valve: The tricuspid valve leaflets are thin and pliable. The tricuspid valve is normal in structure and function. There is mild to moderate tricuspid regurgitation. The right ventricular systolic pressure is estimated to be at least 38 mmHg based on an estimated right atrial pressure of 3 mm Hg. Pulmonic Valve: The pulmonic valve leaflets are thin and pliable; valve motion is normal. The pulmonic valve is normal in structure and function. There is trace pulmonic regurgitation. Great Vessels: The aortic root is normal size. The dimensions of the ascending aorta are normal. The pulmonary artery is normal size. The IVC is of normal diameter and collapses greater than 50% with a sniff. This suggests a low right atrial pressure of 3 mm Hg. Pericardium/ Pleura There is no pericardial effusion. There is no pleural effusion. MMode/2D Measurements & Calculations LVIDd: 4.8 cm LVOT diam: 2.0 cm LVIDs: 2.7 cm Ao root diam: 3.0 cm FS: 44.6 % asc Aorta Diam: 3.4 cm EPSS: 0.35 cm Ao Arch Diam (Prox Trans): 2.2 cm IVSd: 1.2 cm LVPWd: 1.1 cm LV schroeder. diameter/BSA (cm/m^2): 2.9 LV sys. diameter/BSA (cm/m^2): 1.6 LA A2 area: 25.7 cm2 RA long axis: 5.5 cm LA A4 area: 34.5 cm2 RA area: 20.9 cm2 LA length (vol): 7.0 cm RA vol: 67.5 ml LA vol: 107.6 ml RA : 39.9 ml/m2 LA vol index: 63.6 ml/m2 IVC diam: 1.4 cm RVD1 (basal): 3.8 cm RVD2 (mid): 3.1 cm TAPSE: 3.0 cm Doppler Measurements & Calculations Ao V2 max: 173.4 cm/sec LVOT Max Nato: 132.4 cm/sec Ao V2 mean: 107.4 cm/sec LV V1 max P.0 mmHg Ao max P.0 mmHg LV V1 VTI: 32.8 cm Ao mean P.4 mmHg OG(I,D): 2.6 cm2 Ao V2 VTI: 40.5 cm OG(V,D): 2.5 cm2 sev ratio: 0.81 OG indexed to BSA (cm^2/m^2): 1.5 MV E max nato: 104.6 cm/sec TR max nato: 297.0 cm/sec MV A max nato: 79.6 cm/sec TR max P.3 mmHg MV E/A: 1.3 PA V2 max: 89.8 cm/sec Med Peak E' Nato: 8.2 cm/sec PA V2 mean: 64.2 cm/sec E/E' med: 12.8 PA mean P.8 mmHg Lat Peak E' Nato: 10.0 cm/sec PA pr(Accel): 44.7 mmHg E/E' lat: 10.5 E/e' average: 11.6 MV dec time: 0.23 sec SV(LVOT): 106.0 ml Electronically signed by: Diana Estrella M.D. on Reading Physician:08/06/2024 11:53 PM
== END ==
PROVIDERS: Family Provider Family Medicine; PCP Family Medicine; Referring Provider Family Medicine; Visit Provider Family Medicine
DX: I08.1 Rheumatic disorders of both mitral and tricuspid valves (principal); I48.91 Unspecified atrial fibrillation
CPT/HCPCS: 93306

== ENCOUNTER → 2024-08-10 09:47 | Outpatient (CLI) | payer MEDICARE, SELFPAY | PROVIDERS: Family Provider Family Medicine; PCP Family Medicine; Referring Provider Family Medicine; Visit Provider Family Medicine | DX: I48.91 Unspecified atrial fibrillation (principal) | CPT/HCPCS: 93242; 93244 ==

== ENCOUNTER → 2024-11-25 09:13 | Outpatient (CLI) | payer MEDICARE, SELFPAY ==
--- NOTE | 2024-11-25 09:14 | DI.NM.S_ITS ---
PROCEDURE: NM EXERCISE TREADMILL NON NUC COMPARISON: None INDICATIONS: AFIB FINDINGS: Rest ECG sinus rhythm 71 bpm. Nomi protocol 5:15, maximum heart rate 126 bpm (92% peak predicted), peak blood pressure 142/86, 7.0 METS, ALEXANDRE -19%. Exercise ECG sinus tachycardia, no ST segment changes, frequent PACs and PVCs. The patient did not report exercise-induced chest discomfort. IMPRESSION: Low risk study. No evidence of exercise-induced ischemia or arrhythmia. There is note of frequent PACs and PVCs throughout. Normal hemodynamic response. Good exercise capacity. Dictated by: Vi Rondon D.O. on 11/25/2024 at 16:11 Approved by: Vi Rondon D.O. on 11/25/2024 at 16:13
== END ==
LOC: NUCM 09:14
PROVIDERS: Family Provider Family Medicine; PCP Family Medicine; Referring Provider Internal Medicine; Visit Provider Internal Medicine
DX: I48.91 Unspecified atrial fibrillation (principal)
CPT/HCPCS: 93017

== ENCOUNTER → 2025-01-13 10:45 | Outpatient (CLI) | payer MEDICARE, SELFPAY ==
--- NOTE | 2025-01-13 10:47 | DI.RAD.S_ITS ---
PROCEDURE: XR CERVICAL SPINE 4V OR 5V INDICATIONS: Right-sided axial neck pain TECHNIQUE: Five views of the cervical spine were acquired. COMPARISON: None. FINDINGS: Cervical spine curvature and alignment: Straightening lordotic curve suggests muscle spasm. There is 3 mm of C4 anterior subluxation due to facet degeneration Bones: There are no osseous abnormalities. Disc spaces: Severe C4-5 C5-6 C6-7 and C7-T1 degenerative disc disease. Severe C2-3 through C7-T1 degenerative facet disease Through C5-6 degenerative facet disease Intervertebral foramen: Mild narrowing left C3-4 both C4-5 and C5-6 IV foramen due to degenerative spurring Soft tissues: Calcified granulomas seen in the lung apices. IMPRESSION: Degeneration. Three lordotic curve suggesting muscle spasm. Anise past modest may be therapeutic Dictated by: Fabian Mckee M.D. on 01/14/2025 at 10:28 Approved by: Fabian Mckee M.D. on 01/14/2025 at 10:30
== END ==
PROVIDERS: PCP Family Medicine; Referring Provider Family Medicine; Visit Provider Physical Medicine & Rehabilitation
DX: M47.812 Spondylosis without myelopathy or radiculopathy, cervical region (principal); M50.321 Other cervical disc degeneration at C4-C5 level
CPT/HCPCS: 72050